=== PATIENT | male | born 1985 | race African-American/Black ===

== ENCOUNTER 2017-03-16 19:54 | Emergency (ER) | payer BC ==
[~2017-03-16] VITALS: Ht 180.3 cm; Wt 86.2 kg
[2017-03-16 20:00] VITALS: BP_SYST 150
[2017-03-16] MEDS ORDERED: ACETAMINOPHEN 325 MG TABLET ONE (20:58)
[2017-03-16] MEDS ORDERED: IBUPROFEN 800 MG TABLET PO ONE (21:00)
[2017-03-16] MEDS ORDERED: ACETAMINOPHEN 500 MG TABLET PO ONE (21:00)
--- NOTE | 2017-03-16 21:14 | NUR ---
Pt came into the ER in stable condition. Pt c/o fever w/ non productive cough. -n/v/d -sob -chest pain. No acute distress noted at this time, will continue to monitor.
--- NOTE | 2017-03-16 21:14 | NUR ---
Patient to [facility] for evaluation. Side rails up. Report given to ERICA TUCKER.
--- NOTE | 2017-03-16 21:19 | NUR ---
FROYLAN Phillips at bedside examining patient.
[2017-03-16 21:25] VITALS: BP_SYST 150
--- NOTE | 2017-03-16 21:25 | NUR ---
Patient given written and verbal discharge instructions and verbalizes understanding. ER MD MAC discussed with patient the results and treatment provided. Patient in stable condition. ID arm band removed. Rx of TAMIFLU given. Patient educated on pain management and to follow up with PMD. Pain Scale 0/10. Opportunity for questions provided and answered.
== END 2017-03-16 21:25 | disposition home or self-care (01) ==
LOC: SED 19:54
DX: J09.X2 Influenza due to identified novel influenza A virus with other respiratory manifestations (principal); R50.9 Fever, unspecified
CPT/HCPCS: 36415; 86710; 99284